=== PATIENT | female | born 1990 | race Caucasian/White ===

== ENCOUNTER 2023-05-08 14:33 | Emergency (ER) | payer OTHER ==
[~2023-05-08] VITALS: Ht 162.6 cm; Wt 73.0 kg
[2023-05-08 14:37] VITALS: BP 127/81; PULSE 76; RESP 16; O2SAT 100
[2023-05-08 15:30] VITALS: TEMP 98.7
[2023-05-08] MEDS ORDERED: ACETAMINOPHEN 325MG TABLET PO ONE (15:30)
[2023-05-08 15:59] LABS: HCG SCREEN NEGATIVE
[2023-05-08] MEDS ORDERED: NAPR-1176 MT (17:18)
[2023-05-08] MEDS ORDERED: CYCL10TA21 MT (17:18)
== END 2023-05-08 17:40 | disposition home or self-care (01) ==
LOC: ER 14:33
DX: S10.93XA Contusion of unspecified part of neck, initial encounter (principal); V49.59XA Passenger injured in collision with other motor vehicles in traffic accident, initial encounter; Y93.89 Activity, other specified; Y92.89 Other specified places as the place of occurrence of the external cause; Y99.8 Other external cause status
CPT/HCPCS: 84703; 99284